=== PATIENT | male | born 1975 | race Caucasian/White ===

== ENCOUNTER 2021-05-14 07:40 | Emergency (ER) | payer BC ==
[2021-05-14] MEDS ORDERED: Aspirin 81 MG Tab.Chew PO ONE ×2 (08:18→08:20)
[2021-05-14 09:25] LABS: RESPIRATORY SYNCYTIAL VIR NAA NEGATIVE (NEGATIVE)
[2021-05-14 09:28] LABS: ANION GAP 10.3 mmol/L (5-15); CHLORIDE,CL 101 mmol/L (98-107); SODIUM,NA 132 mmol/L (136-145)
[2021-05-14 09:28] LABS: CORONAVIRUS COVID-19 NAA NEGATIVE (NEGATIVE)
== END 2021-05-14 10:15 | disposition home or self-care (01) ==
LOC: KA.ED 07:40
DX: R07.9 Chest pain, unspecified (principal); R51.9 Headache, unspecified; I10 Essential (primary) hypertension; Z20.822 Contact with and (suspected) exposure to COVID-19
CPT/HCPCS: 0241U; 36415; 71045; 80053; 83690; 84484; 85025; 93010; 99284; 99285-25; A9270-GY